=== PATIENT | female | born 2000 | race Caucasian/White ===

== ENCOUNTER 2021-03-18 06:32 | Inpatient (IN) | payer MEDICAID ==
[~2021-03-18] VITALS: Ht 154.9 cm; Wt 76.0 kg
[2021-03-18] MEDS ORDERED: ZOLPIDEM TARTRATE 10 MG TABLET PO PRN (10:45)
[2021-03-18] MEDS: LORazepam 2 MG TABLET PO PRN (13:11)
[2021-03-18 13:28] VITALS: BP 99/61
[2021-03-18] MEDS: HALOPERIDOL 5 MG TABLET PO PRN (13:57)
[2021-03-18] MEDS ORDERED: INFLUENZA VIRUS VACCINE QVS 2021-22 (6MO+)/PF 60 MCG/0.5 ML SYRINGE IM. ONE (14:00)
[2021-03-18 16:06] VITALS: BP 112/64
[2021-03-19 05:30] VITALS: BP 100/62
[2021-03-19] MEDS: LORazepam 2 MG TABLET PO PRN ×2 (07:17→12:01)
[2021-03-19] MEDS: HALOPERIDOL 5 MG TABLET PO PRN ×2 (07:31→12:01)
[2021-03-19 07:38] LABS: BASOPHILS % (AUTO) 0.5 % (0.0-2.0); EOSINOPHILS % (AUTO) 2.5 % (1.0-6.0); HEMATOCRIT 37.9 % (36-46); HEMOGLOBIN 12.8 g/dL (12.0-16.0); LYMPHOCYTES # (AUTO) 2.4 K/uL (1.0-4.8); LYMPHOCYTES % (AUTO) 37.8 % (22.0-44.0); MEAN CORPUSCULAR HEMOGLOBIN 30.2 pg (26.0-34.0); MEAN CORPUSCULAR HGB CONC 33.8 G/dL (31.0-37.0); MEAN CORPUSCULAR VOLUME 89 fL (80-100); MONOCYTES # (AUTO) 0.6 K/uL (0.1-1.0); MONOCYTES % (AUTO) 9.6 % (2.0-9.0); NEUTROPHILS # (AUTO) 3.2 K/uL (1.8-7.7); NEUTROPHILS % (AUTO) 49.6 % (40.0-70.0); PLATELET COUNT (AUTO) 334 K/uL (150-450); RED BLOOD CELL COUNT(AUTO) 4.24 MIL/uL (4.00-5.20); RED CELL DISTRIBUTION WIDTH 12.6 % (11.5-14.5)
[2021-03-19 07:56] LABS: HEMOGLOBIN A1C 5.4 % (3.8-5.6)
[2021-03-19 08:00] LABS: ALANINE AMINOTRANSFERASE 24 U/L (12-78); ALBUMIN 4.1 g/dL (3.4-5.0); ALKALINE PHOSPHATASE 65 U/L (46-116); ANION GAP 6 mmol/L (8-16); ASPARTATE AMINOTRANSFERASE 10 U/L (15-37); BILIRUBIN,TOTAL 0.3 mg/dL (0.1-1.0); CALCIUM, TOTAL 9.4 mg/dL (8.8-10.5); CARBON DIOXIDE 28 mmol/L (22-29); CHLORIDE 108 mmol/L (98-107); CHOL/HDL RATIO 4.2 (3.9-5.7); CHOLESTEROL 155 mg/dL (131-200); CREATININE 0.79 mg/dL (0.60-1.30); FREE T4 (FREE THYROXINE) 1.07 ng/dL (0.76-1.46); GLOMERULAR FILTR. RATE CALC > 60 mL/min (>60); GLUCOSE,RANDOM 95 mg/dL (70-110); HCG,QUANTITATIVE < 1 mIU/mL (0-6); HDL CHOLESTEROL 37 mg/dL (40-60); LDL CHOL (CALC.) 98 mg/dL (0-130); POTASSIUM 4.4 mmol/L (3.5-5.1); SODIUM SERUM 142 mmol/L (136-145); THYROID STIMULATING HORMONE 0.26 uIU/mL (0.36-3.74); TOTAL PROTEIN, SERUM 7.6 g/dL (6.4-8.2); TRIGLYCERIDES 100 mg/dL (15-150); UREA NITROGEN, BLOOD 17 mg/dL (7-18)
[2021-03-19 08:04] VITALS: BP 109/64
[2021-03-19] MEDS: SERTRALINE HCL 100 MG TABLET PO SCH (11:05)
[2021-03-19 16:04] VITALS: BP 108/62
[2021-03-20 04:45] VITALS: BP 110/65
[2021-03-20] MEDS: LORazepam 2 MG TABLET PO PRN ×2 (07:26→16:45)
[2021-03-20 08:00] VITALS: BP 110/68
[2021-03-20] MEDS: SERTRALINE HCL 100 MG TABLET PO SCH (08:19)
[2021-03-20 16:05] VITALS: BP 100/61
[2021-03-20] MEDS ORDERED: PETROLATUM,WHITE 28 GM JELLY TP PRN (16:15)
[2021-03-20] MEDS ORDERED: MAGNESIUM HYDROXIDE SUSPENSION 30 ML UDCUP PO PRN (16:15)
[2021-03-20] MEDS ORDERED: GuaiFENesin/D-METHORPHAN [SUGAR-FREE] 200-20MG/10 ML SYRUP UDCUP PO PRN (16:15)
[2021-03-20] MEDS ORDERED: NICOTINE 14 MG/24 HOUR PATCH TD PRN (16:15)
[2021-03-20] MEDS ORDERED: CloNIDine HCL 0.1 MG TABLET PO PRN (16:15)
[2021-03-20] MEDS ORDERED: ACETAMINOPHEN 325 MG TABLET PO PRN (16:15)
[2021-03-20] MEDS ORDERED: ALBUTEROL SULFATE HFA 90 MCG/PUFF 8 GM INHALER IH PRN (16:15)
[2021-03-20] MEDS ORDERED: IBUPROFEN 400 MG TABLET PO PRN (16:15)
[2021-03-20] MEDS ORDERED: LOPERAMIDE HCL 2 MG CAPSULE PO PRN (16:15)
[2021-03-20] MEDS ORDERED: ONDANSETRON HCL 4 MG TABLET PO PRN (16:15)
[2021-03-20] MEDS ORDERED: DOCUSATE SODIUM 100 MG CAPSULE PO PRN (16:15)
[2021-03-20] MEDS ORDERED: MAG HYDROX/AL HYDROX/SIMETH ES 30 ML SUSPENSION UDCUP PO PRN (16:15)
[2021-03-21 05:41] VITALS: BP 110/62
[2021-03-21 05:45] VITALS: BP 100/60
[2021-03-21] MEDS: LORazepam 2 MG TABLET PO PRN ×2 (07:02→16:11)
[2021-03-21 08:04] VITALS: BP 118/60
[2021-03-21] MEDS: SERTRALINE HCL 100 MG TABLET PO SCH (09:16)
[2021-03-21 16:04] VITALS: BP 112/65
[2021-03-22 00:02] VITALS: BP 117/70
[2021-03-22] MEDS: LORazepam 2 MG TABLET PO PRN ×2 (05:30→18:31)
[2021-03-22 08:05] VITALS: BP 113/57
[2021-03-22] MEDS: SERTRALINE HCL 100 MG TABLET PO SCH (08:33)
[2021-03-22 10:40] VITALS: BP 117/60
[2021-03-22] MEDS: HALOPERIDOL 5 MG TABLET PO PRN (14:40)
[2021-03-22 16:08] VITALS: BP 106/67
[2021-03-23 00:40] VITALS: BP 110/62
[2021-03-23 08:14] VITALS: BP 104/68
[2021-03-23] MEDS: SERTRALINE HCL 100 MG TABLET PO SCH (09:02)
== END 2021-03-23 10:45 | disposition left against medical advice (07) | DRG 751 ==
LOC: B2S 12:34
PROVIDERS: ADMIT Psychiatry & Neurology Psychiatry; ATTEND Psychiatry & Neurology Psychiatry
DX: F33.2 Major depressive disorder, recurrent severe without psychotic features (principal); Z91.19 Patient's noncompliance with other medical treatment and regimen; E66.9 Obesity, unspecified; F90.9 Attention-deficit hyperactivity disorder, unspecified type; F41.9 Anxiety disorder, unspecified; Z53.29 Procedure and treatment not carried out because of patient's decision for other reasons; Z68.31 Body mass index [BMI] 31.0-31.9, adult; Z79.899 Other long term (current) drug therapy
CPT/HCPCS: 80053; 80061; 83036; 84436; 84439; 84443; 84702; 85025; G0480